=== PATIENT | female | born 1955 | race African-American/Black ===

== ENCOUNTER 2017-09-11 07:28 | Day surgery (SDC) | payer OTHER ==
[2017-09-11] MEDS ORDERED: LR 1,000 ML IV ×2 (07:30→11:15)
[2017-09-11] MEDS ORDERED: LIDOCAINE 1% MDV 20ML VIAL SQ (07:30)
[2017-09-11] MEDS ORDERED: PROPOFOL 200 MG/20 ML VIAL As Ordered ×2 (08:06→09:44)
[2017-09-11] MEDS: OXYMETAZOLINE NASAL SPRAY (AFRIN) As Ordered (09:21)
[2017-09-11] MEDS: AMPICILLIN SOD/SULBACTAM SOD 3 GM in D5W MINI-BAG PLUS 100 ML IV (09:32)
[2017-09-11] MEDS: dexameTHASONE 4 MG/ML 1ML VIAL (J1100) IV (09:34)
[2017-09-11] MEDS ORDERED: ROCURONIUM BROMIDE 50 MG/5 ML VIAL As Ordered (09:43)
[2017-09-11] MEDS ORDERED: LIDOCAINE 2% INJ 100 MG/5 ML SDV (FOR ANES.) As Ordered (09:43)
[2017-09-11] MEDS ORDERED: MIDAZOLAM INJ 2 MG/2 ML VIAL (J2250) As Ordered (09:43)
[2017-09-11] MEDS ORDERED: fentaNYL 100 MCG/2 ML INJECTION (J3010) As Ordered (09:43)
[2017-09-11] MEDS ORDERED: ePHEDrine SULFATE 25 MG/5 ML(5MG/ML) SYRINGE As Ordered (09:50)
[2017-09-11] MEDS ORDERED: GLYCOPYRROLATE INJ 0.2 MG/ML 2 ML VIAL As Ordered (10:18)
[2017-09-11] MEDS ORDERED: ONDANSETRON 4MG/2ML VIAL (J2405) As Ordered (10:18)
[2017-09-11] MEDS: LIDOCAINE 2% W/ EPINEPHRINE 1.7 ML DENTAL INJ As Ordered (10:32)
[2017-09-11] MEDS ORDERED: HYDROMORPHONE HCL 0.5 MG/ 0.5 ML SYRINGE (J1170 PER 1) IV (11:15)
[2017-09-11] MEDS ORDERED: METOCLOPRAMIDE INJ 10MG/2ML VIAL (J2765) IV (11:15)
[2017-09-11] MEDS ORDERED: ONDANSETRON 4MG/2ML VIAL (J2405) IV (11:15)
[2017-09-11] MEDS ORDERED: fentaNYL 100 MCG/2 ML INJECTION (J3010) IV (11:15)
[2017-09-11] MEDS ORDERED: PERCOCET 5MG/325MG TAB PO (11:15)
== END 2017-09-11 12:00 | disposition home or self-care (01) ==
LOC: M SDC 07:28
DX: M27.0 Developmental disorders of jaws (principal); M26.01 Maxillary hyperplasia
CPT/HCPCS: D7472